=== PATIENT | male | born 1985 | race Caucasian/White ===

== ENCOUNTER 2024-09-20 10:58 | Observation (INO) ==
[2024-09-20] MEDS: 0.9 % SODIUM CHLORIDE 1,000 ML IV ONE (11:46)
[2024-09-20 11:56] LABS: Basophils # (Auto) 0.08 K/mcL (0.00-0.30); Basophils % (Auto) 0.9 % (0.0-2.0); Eosinophils # (Auto) 0.62 K/mcL (0.00-0.70); Eosinophils % (Auto) 6.9 % (0.0-7.0); Hematocrit 47.5 % (40.1-51.0); Hemoglobin 15.6 g/dL (13.7-17.5); Lymphocytes # (Auto) 3.54 K/mcL (1.50-4.80); Lymphocytes % (Auto) 39.2 % (15.5-49.0); Mean Corpuscular HGB Conc 32.8 g/dL (31.0-36.0); Monocytes % (Auto) 6.6 % (1.0-12.0); Neutrophils % (Auto) 46.2 % (38.0-78.0); Platelet Count 334 K/mcL (140-440); RBC 5.46 M/mcL (4.63-6.08); Red Cell Distribution Width 13.7 % (11.5-14.5)
[2024-09-20] MEDS: HYDROmorphone 1 MG/ML SYRINGE IV ONE (12:21)
[2024-09-20] MEDS: ONDANSETRON 4 MG/2 ML VIAL IV ONE (12:21)
[2024-09-20] MEDS: 0.9 % SODIUM CHLORIDE 1,000 ML IV SCH (12:22)
[2024-09-20] MEDS: PIPERACILLIN SODIUM/TAZOBACTAM 3.375 GM in DEXTROSE 5% IN WATER 100 ML IV SCH (12:32)
[2024-09-20 13:13] LABS: ALT/SGPT 39 U/L (<40); AST/SGOT 19 U/L (<40); Albumin 4.5 gm/dL (3.2-5.2); Albumin/Globulin Ratio 1.5 (1.0-2.3); Alkaline Phosphatase 63 U/L (39-117); Bilirubin,Total 0.3 mg/dL (0.1-1.0); Blood Urea Nitrogen 8 mg/dL (6-20); Calcium 9.8 mg/dL (8.6-10.4); Carbon Dioxide 22 mmol/L (22-30); Chloride 104 mmol/L (96-108); Glomerular Filtration Rate 113; Glucose 97 mg/dL (70-105); Potassium 3.9 mmol/L (3.3-5.1); Sodium 140 mmol/L (133-145)
[2024-09-20] MEDS: ONDANSETRON 4 MG/2 ML VIAL IV PRN (18:39)
[2024-09-20] MEDS: ACETAMINOPHEN 325 MG TABLET PO PRN (18:44)
[2024-09-21] MEDS: NICOTINE 21 MG PATCH TOPICAL SCH (00:03)
[2024-09-21] MEDS: NICOTINE 21 MG PATCH ONE (00:03)
[2024-09-21] MEDS: HYDROmorphone 0.5 MG/0.5 ML SYRINGE IV PRN (00:13)
[2024-09-21 06:23] LABS: Basophils # (Auto) 0.07 K/mcL (0.00-0.30); Basophils % (Auto) 0.6 % (0.0-2.0); Eosinophils # (Auto) 0.57 K/mcL (0.00-0.70); Eosinophils % (Auto) 5.1 % (0.0-7.0); Hematocrit 43.5 % (40.1-51.0); Hemoglobin 14.1 g/dL (13.7-17.5); Lymphocytes # (Auto) 3.22 K/mcL (1.50-4.80); Lymphocytes % (Auto) 29.1 % (15.5-49.0); Mean Cell Volume 88.1 fL (80.0-100.0); Mean Corpuscular HGB Conc 32.4 g/dL (31.0-36.0); Monocytes # (Auto) 0.59 K/mcL (0.10-0.90); Monocytes % (Auto) 5.3 % (1.0-12.0); Neutrophils % (Auto) 59.8 % (38.0-78.0); Platelet Count 305 K/mcL (140-440); RBC 4.94 M/mcL (4.63-6.08); Red Cell Distribution Width 13.5 % (11.5-14.5); WBC 11.1 K/mcL (4.5-11.0)
[2024-09-21 06:42] LABS: ALT/SGPT 36 U/L (<40); AST/SGOT 19 U/L (<40); Albumin 3.8 gm/dL (3.2-5.2); Albumin/Globulin Ratio 1.7 (1.0-2.3); Alkaline Phosphatase 53 U/L (39-117); Bilirubin,Direct < 0.2 mg/dL (0-0.3); Bilirubin,Total 0.3 mg/dL (0.1-1.0); Blood Urea Nitrogen 8 mg/dL (6-20); Calcium 8.6 mg/dL (8.6-10.4); Carbon Dioxide 25 mmol/L (22-30); Chloride 107 mmol/L (96-108); Globulin 2.3 gm/dL (2.2-3.7); Glomerular Filtration Rate 113; Glucose 96 mg/dL (70-105); Lactate Dehydrogenase 133 U/L (135-225); Phosphorous 3.3 mg/dL (2.5-4.5); Potassium 3.8 mmol/L (3.3-5.1); Sodium 141 mmol/L (133-145); Triglycerides 187 mg/dL (<150); Uric Acid 4.5 mg/dL (2.5-8.0)
[2024-09-21] MEDS ORDERED: KETAMINE 50 MG/ML Syringe IV ONE (15:04)
[2024-09-21] MEDS ORDERED: PROPOFOL 200 MG/20 ML VIAL IV ONE (15:04)
[2024-09-21] MEDS ORDERED: fentaNYL 100 MCG/2 ML VIAL ONE ×2 (15:04→16:05)
[2024-09-21] MEDS ORDERED: SUGAMMADEX SODIUM 200 MG/2 ML VIAL IV ONE (15:04)
[2024-09-21] MEDS ORDERED: ROCURONIUM 10 MG/ML ML IV ONE ×2 (15:07→15:46)
[2024-09-21] MEDS ORDERED: ONDANSETRON 4 MG/2 ML VIAL ONE (15:46)
[2024-09-21] MEDS ORDERED: GLYCOPYRROLATE 0.2 MG/ML VIAL IV ONE (15:46)
[2024-09-21] MEDS ORDERED: DEXAMETHASONE 10 MG/ML VIAL ONE (15:46)
[2024-09-21] MEDS ORDERED: LIDOCAINE 2% PF 5 ML VIAL ONE (15:46)
[2024-09-21] MEDS ORDERED: LACTATED RINGERS 250 ML IV PRN (16:07)
[2024-09-21] MEDS ORDERED: fentaNYL 100 MCG/2 ML VIAL IV PRN (16:07)
[2024-09-21] MEDS ORDERED: HYDROmorphone 0.5 MG/0.5 ML SYRINGE IV PRN (16:07)
[2024-09-21] MEDS ORDERED: MEPERIDINE 25 MG/ML VIAL IV PRN (16:07)
[2024-09-21] MEDS ORDERED: IPRATROPIUM/ALBUTEROL 3 ML AMPUL.NEB NEB PRN (16:07)
[2024-09-21] MEDS ORDERED: NALOXONE HCL 0.4 MG/ML VIAL IV PRN (16:07)
[2024-09-21] MEDS ORDERED: ONDANSETRON 4 MG/2 ML VIAL IV PRN (16:07)
[2024-09-21] MEDS ORDERED: diphenhydrAMINE 50 MG/ML VIAL IV PRN (16:07)
[2024-09-21] MEDS: ACETAMINOPHEN 1,000 MG/100 ML BAG IV ONE (16:32)
[2024-09-21] MEDS: METHOCARBAMOL 1,000 MG/10 ML VIAL IV PRN (16:46)
[2024-09-21] MEDS: KETOROLAC 30 MG/ML VIAL IV PRN (16:54)
[2024-09-21] MEDS: LACTATED RINGERS 1,000 ML IV SCH (17:32)
[2024-09-21] MEDS: PIPERACILLIN SODIUM/TAZOBACTAM 4.5 GM in DEXTROSE 5% IN WATER 100 ML IV SCH (17:39)
[2024-09-22 07:03] LABS: Basophils # (Auto) 0.03 K/mcL (0.00-0.30); Basophils % (Auto) 0.3 % (0.0-2.0); Eosinophils # (Auto) 0 K/mcL (0.00-0.70); Eosinophils % (Auto) 0 % (0.0-7.0); Hematocrit 42.7 % (40.1-51.0); Lymphocytes # (Auto) 1.55 K/mcL (1.50-4.80); Lymphocytes % (Auto) 14.8 % (15.5-49.0); Mean Cell Volume 87.3 fL (80.0-100.0); Mean Corpuscular HGB Conc 32.8 g/dL (31.0-36.0); Mean Platelet Volume 9.8 fL (8.8-12.5); Monocytes # (Auto) 0.44 K/mcL (0.10-0.90); Monocytes % (Auto) 4.2 % (1.0-12.0); Neutrophils % (Auto) 80.6 % (38.0-78.0); Platelet Count 313 K/mcL (140-440); RBC 4.89 M/mcL (4.63-6.08); Red Cell Distribution Width 13.5 % (11.5-14.5); WBC 10.5 K/mcL (4.5-11.0)
[2024-09-22 07:20] LABS: ALT/SGPT 70 U/L (<40); AST/SGOT 38 U/L (<40); Albumin 3.9 gm/dL (3.2-5.2); Albumin/Globulin Ratio 1.6 (1.0-2.3); Alkaline Phosphatase 56 U/L (39-117); Bilirubin,Direct < 0.2 mg/dL (0-0.3); Bilirubin,Total < 0.2 mg/dL (0.1-1.0); Blood Urea Nitrogen 7 mg/dL (6-20); Calcium 8.9 mg/dL (8.6-10.4); Carbon Dioxide 21 mmol/L (22-30); Chloride 106 mmol/L (96-108); Globulin 2.5 gm/dL (2.2-3.7); Glomerular Filtration Rate 119; Glucose 162 mg/dL (70-105); Lactate Dehydrogenase 178 U/L (135-225); Phosphorous 2.7 mg/dL (2.5-4.5); Sodium 138 mmol/L (133-145); Triglycerides 107 mg/dL (<150); Uric Acid 3.9 mg/dL (2.5-8.0)
[2024-09-22 11:27] VITALS: TEMP 97.8; O2SAT 95
[2024-09-22] MEDS: CALCIUM CARBONATE 500 MG TAB.CHEW CHEWED PRN (11:56)
== END 2024-09-22 14:54 | disposition home or self-care (01) ==
LOC: ED 10:58 → MEDSUR 12:48 → INTOOBSV 12:48
PROVIDERS: ADMIT Family Medicine Adult Medicine; ATTEND Family Medicine Adult Medicine